=== PATIENT | male | born 1980 | race Caucasian/White ===

== ENCOUNTER 2016-12-14 19:18 | Inpatient (IN) ==
[2016-12-14] MEDS ORDERED: ASPIRIN PO STA (19:34)
[2016-12-14 19:49] LABS: MANUAL DIFF NEEDED? NO
[2016-12-14 19:55] LABS: BASO% 0.5 % (0.0-0.8); EOS# 0.42 X1000 (0.0-0.7); EOS% 2.7 % (0.0-10.0); HEMATOCRIT 45.4 % (42.0-52.0); IMM GRAN# 0.02 X1000 (0.0-0.04); IMM GRAN% 0.1 % (0.0-0.5); LYMPH% 27.8 % (20.5-51.1); MCH 31.1 PG (27-31); MCHC 35.2 g/dL (33-37); MCV 88.3 FL (81-99); MONO# 1.16 X1000 (0.11-0.59); MONO% 7.5 % (1.7-9.3); MPV 10.1 FL (7.4-10.4); NEUT% 61.4 % (42.2-75.2); PLT 260 X1000 (130-400); RBC 5.14 XMIL (4.7-6.1)
[2016-12-14 20:04] LABS: INR 1.01; PROTIME 10.6 Seconds (9.2-11.7); PTT 26.9 Seconds (22.0-36.0)
--- NOTE | 2016-12-14 20:19 | Diag Imaging Result Doc PS360 ---
CHEST-2 VIEWS - 12/14/2016 INDICATION: CP TECHNIQUE: COMPARISON: 04/09/2015 FINDINGS: The lungs are normally expanded and clear. Heart size and mediastinal contours are normal. No pneumothorax or pleural effusion. IMPRESSION: Negative exam. Electronically signed by Shaji Obrien 12/14/2016 8:17 PM
[2016-12-14 20:27] LABS: AGAP 12; ALBUMIN 4.1 g/dL (3.5-5.0); ALKALINE PHOSPHATASE 152 U/L (32-122); BUN 10 mg/dL (8-22); CALCIUM 9.8 mg/dL (8.8-10.2); CHLORIDE 104 mmol/L (98-107); COSMO 285; GOT 110 U/L (10-34); GPT 30 U/L (10-44); POTASSIUM 3.9 mmol/L (3.5-5.1); SODIUM 143 mmol/L (136-145); TCO2 27 mmol/L (25-35); TOTAL PROTEIN 6.8 g/dL (6.3-8.3)
[2016-12-14 20:32] LABS: CK PROFILE 1369 U/L (24-204)
[2016-12-14] MEDS ORDERED: LOVENOX 1 MG/KG SUBQ ONE (20:50)
[2016-12-14] MEDS ORDERED: LOPRESSOR PO ONE (20:50)
[2016-12-14 20:57] LABS: CK INDEX 13.3 (0.0-2.5)
[2016-12-14 21:11] LABS: URINE CULTURE NEEDED? NO; URINE MICRO REVIEW NEEDED? NO; URINE SOURCE CLEAN CATCH
[2016-12-14 21:14] LABS: UR EPITHELIAL CELLS <10 /HPF (<10); URINE BACTERIA NEGATIVE /HPF; URINE RBC <10 /HPF (<10); URINE WBC <10 /HPF (<10)
[2016-12-14 21:15] LABS: BILIRUBIN URINE NEGATIVE (NEGATIVE); BLOOD URINE NEGATIVE (NEGATIVE); COLOR YELLOW; GLUCOSE URINE NEGATIVE (NEGATIVE); LEUKOCYTES URINE NEGATIVE (NEGATIVE); NITRITE URINE NEGATIVE (NEGATIVE); PH URINE 6.5; PROTEIN URINE TRACE mg/dL (NEGATIVE); SP GRAVITY URINE 1.023; TURBIDITY URINE CLEAR (CLEAR); UROBILINOGEN URINE NORMAL (NORMAL)
[2016-12-14] MEDS ORDERED: LOVENOX SUBQ ONE (21:15)
[2016-12-14 21:39] LABS: UR AMPHETAMINES QUAL NONE DETECTED (NONE DETECT); UR BARBITUATES QUAL NONE DETECTED (NONE DETECT); UR BENZODIAZEPIN QUAL NONE DETECTED (NONE DETECT); UR CANNABINOIDS QUAL NONE DETECTED (NONE DETECT); UR COCAINE QUAL NONE DETECTED (NONE DETECT); UR METHADONE QUAL NONE DETECTED (NONE DETECT); UR OPIATES QUAL NONE DETECTED (NONE DETECT); UR OXYCODONE QUAL NONE DETECTED (NONE DETECT); UR PCP QUAL NONE DETECTED (NONE DETECT)
[2016-12-14] MEDS ORDERED: ZOCOR PO SCH (22:36)
[2016-12-14] MEDS ORDERED: TYLENOL PO PRN (22:36)
[2016-12-14] MEDS ORDERED: ZOFRAN IV PRN (22:36)
[2016-12-14] MEDS: NITROGLYCERIN TOP SCH (23:08)
[2016-12-14 23:39] LABS: HEMOGLOBIN A1C 5.1 % (4.8-6.0)
--- NOTE | 2016-12-15 00:18 | HISTORY AND PHYSICAL ---
CHIEF COMPLAINT: Chest pain. HISTORY OF PRESENT ILLNESS: This is a 36-year-old male with a past medical history of hypertension, obesity status post Lap-Band in roughly 2004, he has since lost I believe 100 pounds or so. At any rate, last night at around 2 a.m. he was lying in bed and began having chest pressure with mild pain. He stated that the chest pain was midline in his chest that did not move into his left chest at all. The pain was very mild at 1st and it resolved fairly quickly. He had a 2nd spell that was more intense in pain as well as duration again with a sudden onset roughly 6/10. He also had a heaviness or pressure and stated that it radiated up into his left neck and shoulder. He again waited and did not come to the emergency room until later in the day thinking it was possibly gas. On arrival to the emergency room a chest x-ray, EKG and laboratory data was obtained. The patient was noted as having a elevated CK at 1369, a CK index of 13.3 and a troponin of 1.240. Dr. Bi Zepeda was called. The patient will be admitted to CICU. He is receiving 1 mg/kg of Lovenox in the emergency room as well as 25 mg of metoprolol and then a 325 aspirin. He will be admitted inpatient and will likely stay for at least 48 hours. PAST MEDICAL HISTORY: 1. Hypertension. 2. Depression and anxiety. 3. Basal cell carcinoma of the back status post removal. PREVIOUS SURGICAL HISTORY: 1. Multiple right shoulder surgeries. 2. Lap-Band procedure in 2004. 3. Basal cell carcinoma removal of the back. FAMILY HISTORY: Lives at home with his and 4 children. 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 Denies alcohol or illicit drug use or abuse. FAMILY HISTORY: Significant for coronary artery disease. Both his mother and father had myocardial infarction. The mom had 2 myocardial infarctions before age 53. The father had his 1st 1 at age 40. He was also positive for diabetes mellitus and hypertension. The mother had diabetes and hypertension as well, both grandmothers paternal and maternal had CVAs. ALLERGIES: Bactrim causing itching. HOME MEDICATIONS: Celexa 20 mg daily, Prinzide 20/12.5 mg p.o. daily. REVIEW OF SYSTEMS: Fourteen point review of systems conducted with the patient. Pertinent positives listed above in the HPI. All other systems reviewed and found to be negative. PHYSICAL EXAMINATION: VITAL SIGNS: Temperature 98.4 degrees, pulse 69, respirations 21, blood pressure 139/104, oxygen saturation 97% on room air. GENERAL: Anxious 36-year-old male sitting in ER stretcher. Very pleasant. at bedside. Patient answers all questions appropriately and is in no acute distress at this time. HEENT: Head is atraumatic, normocephalic. Pupils equal, round, reactive to light. Extraocular eye movement intact. Sclerae is anicteric. Conjunctivae is pink. Oral mucosa is moist. NECK: Supple. No JVD. No thyromegaly. Trachea is midline. No cervical lymphadenopathy. No carotid bruit on auscultation. CARDIAC: S1-S2 appreciated. No murmurs, gallops, rubs. Regular rhythm. Sinus rhythm on monitor. LUNGS: Clear to auscultation bilaterally. Mildly prolonged expiratory phase. No wheezing, no rhonchi, no rales. Symmetrical rise and fall respirations. ABDOMEN: Protuberant soft, nondistended, nontender. Bowel sounds present all 4 quadrants. Normoactive. No pulsatile mass. No organomegaly. EXTREMITIES: No clubbing, cyanosis, or edema. 2+ pedal pulses bilaterally. GENITOURINARY: No bladder distention noted. Patient voids. Otherwise deferred. SKIN: Warm, dry and intact. No acute lesions or rash. A 4 cm in diameter circular scarring noted to the left upper shoulder above the scapula where basal cell carcinoma was removed. NEUROLOGICAL: Alert and oriented x3. Cranial nerves 2-12 grossly intact. DIAGNOSTIC DATA: Chest x-ray NAD. LABORATORY DATA: WBC 15.46, hemoglobin 16, hematocrit 45.4, platelet count 260,000. Coagulations within normal limits. D-dimer 0.28. Sodium 143, potassium 3.9, chloride 104, carbon dioxide 27, BUN 10, creatinine 0.9, glucose 111, AST 110, ALT 30, alkaline phosphate 152, CK 1369, CK index 13.3, CK/MB 181.80, troponin 1.240, proBNP 1387. Urine showed trace protein otherwise unremarkable. Toxicology screen pending. ASSESSMENT AND PLAN: 1. Non Q-wave myocardial infarction. Dr. Bi Zepeda has been consulted and was made aware of the patient, 1 mg/kg Lovenox administered in the emergency room, 325 aspirin was given as well as metoprolol 25 mg p.o. q.a.m., will defer cardiac testing such is echocardiogram or stress test to Cardiology. They will possibly prefer cardiac catheterization. Will hold further Lovenox until cardiology evaluates in a.m., continue metoprolol 12.5 mg p.o. b.i.d. and aspirin 325 p.o. daily. Will apply nitroglycerin topically 1 inch q.6 hours. I will check a direct lipid profile but will start simvastatin 40 mg p.o. at bedtime tonight. 2. Hypertension. Patient is relatively normotensive at this time. Will continue MARTÍNEZ inhibitor. As noted above beta jennifer has been added and will also give nitroglycerin as indicated above. 3. Leukocytosis likely reactive. Will recheck laboratory data in a.m. 4. Anxiety and depression. Continue Celexa. 5. Tobacco abuse. Smoking cessation was gone over with the patient, the perils of smoking up to and including were talked about with the patient. He understands his need to quit and has requested a low-dose nicotine patch while in the hospital. This will be provided 14 mg daily. Further recommendations per patient clinical course. Dictated by JAC Gustafson for Law Ochoa MD cc: MD Law Wong MD
[2016-12-15 00:40] LABS: CK INDEX 12.7 (0.0-2.5); CK-MB 167.8 ng/mL (0.0-5.0)
[2016-12-15] MEDS: NITROGLYCERIN TOP SCH ×5 (04:25→21:37)
[2016-12-15 05:08] LABS: MANUAL DIFF NEEDED? NO
[2016-12-15 05:14] LABS: BASO% 0.4 % (0.0-0.8); EOS# 0.29 X1000 (0.0-0.7); EOS% 2.1 % (0.0-10.0); HEMATOCRIT 43.6 % (42.0-52.0); HEMOGLOBIN 14.9 g/dL (14.0-18.0); IMM GRAN# 0.03 X1000 (0.0-0.04); IMM GRAN% 0.2 % (0.0-0.5); LYMPH# 4.73 X1000 (1.2-3.4); LYMPH% 34.9 % (20.5-51.1); MCH 30.5 PG (27-31); MCHC 34.2 g/dL (33-37); MCV 89.3 FL (81-99); MONO# 1.05 X1000 (0.11-0.59); MONO% 7.7 % (1.7-9.3); MPV 10.1 FL (7.4-10.4); NEUT% 54.7 % (42.2-75.2); PLT 247 X1000 (130-400); RBC 4.88 XMIL (4.7-6.1)
[2016-12-15 05:35] LABS: AGAP 9; BUN 10 mg/dL (8-22); CALCIUM 8.8 mg/dL (8.8-10.2); CHLORIDE 102 mmol/L (98-107); COSMO 279; SODIUM 140 mmol/L (136-145); TCO2 29 mmol/L (25-35)
[2016-12-15 06:07] LABS: CK INDEX 10.8 (0.0-2.5); CK-MB 143.7 ng/mL (0.0-5.0)
[2016-12-15] MEDS: LOPRESSOR PO SCH ×2 (09:25→20:29)
[2016-12-15] MEDS: CELEXA PO SCH (09:25)
[2016-12-15] MEDS: ASPIRIN PO SCH (09:25)
[2016-12-15] MEDS: LOVENOX SUBQ SCH ×2 (09:25→21:37)
[2016-12-15] MEDS: NICODERM PATCH TD SCH (09:26)
[2016-12-15] MEDS: PRINZIDE 20/12.5MG PO SCH (09:26)
--- NOTE | 2016-12-15 11:16 | PROGRESS NOTE ---
DATE: 12/15/2016 SUBJECTIVE: Patient reports feeling fine. Denies any chest pain now or overnight. No difficulty in breathing. No nausea, vomiting, or diaphoresis. OBJECTIVE: Vital Signs: Temperature 97.8 degrees, heart rate 65, respiratory rate 18, blood pressure 111/67, O2 saturation 99% on room air. General Examination: This is a 36-year-old, male, lying in bed, in no acute distress. HEENT: Head is normocephalic and atraumatic. Anicteric sclerae and pale conjunctivae. Mucous membranes moist. Neck: Supple. No JVD noted. No carotid bruits. No lymphadenopathy. No thyromegaly. Cardiovascular Examination: S1 and S2 heard. No murmurs, gallops, or rubs. Regular rate and rhythm. Respiratory Examination: Clear bilaterally to auscultation. There is a mild prolonged expiratory phase but there is no wheezing or rhonchi. The patient is not using any accessory muscles or having work of breathing. Abdomen: Soft, nontender to palpation. Bowel sounds present. No organomegaly. Extremities: No clubbing, cyanosis, or edema. Peripheral pulses present in both legs. Neurological Examination: Patient is alert and oriented x3. Moves 4 extremities. Laboratory Data: White cell count 13.57. BMP is normal. Troponin is 2.8 this morning. ASSESSMENT AND PLAN: 1. Non ST-segment elevation myocardial infarction. Overnight, this patient was admitted for non- ST elevated myocardial infarction. Troponin has been getting higher since then and today is 2.8. At this time, we are awaiting cardiology evaluation to see if this patient is a candidate for left heart catheterization or not. Echocardiogram is still pending. We will continue with Lovenox 1 mg/kg every 12 hours and also metoprolol as well. 2. Hypertension. Patient's blood pressure is well controlled. We will continue with same management. 3. Anxiety and depression. We will continue with Celexa. 4. Tobacco abuse. The patient has been strongly advised to stop smoking. cc: Jignesh Ruiz MD
--- NOTE | 2016-12-15 14:23 | CONSULTATION ---
DATE OF CONSULTATION: 12/15/2016 INDICATION: Non ST elevation VT. HISTORY OF PRESENT ILLNESS: Mr. Weems is a 36-year-old noncompliant male with a history of hypertension, not currently taking his medications. He presented for evaluation of chest pain that began at 2 a.m. early Friday morning. This occurred while he was watching TV. This persisted for around 4 hours. He ultimately was able to fall asleep around 8 o' clock in the morning. He ultimately presented yesterday evening secondary to just not feeling right. He has not had any recurrence of the pain since then. The pain was described as a tightness from the midchest radiating to both shoulders. Again, he has not had recurrence of the pain since. He does smoke. PAST MEDICAL HISTORY: 1. Significant for hypertension, depression. 2. Basal cell carcinoma of the back status post removal. SOCIAL HISTORY: He does smoke. He works as a villafuerte. He is . FAMILY HISTORY: Significant for hypertension. REVIEW OF SYSTEMS: A 10 system review of systems is negative except for those things mentioned in HPI. PHYSICAL EXAMINATION: Vital signs: He is afebrile. Heart rate of 61, blood pressure of 115/76. His presenting blood pressure was 145/106. General: No acute distress. HEENT : Oropharynx is moist. Normal dentition. Eye examination shows pink conjunctivae. White sclerae. Neck: Examination shows no obvious thyromegaly or thyroid tenderness. Cardiovascular : He is in a regular rate and rhythm. He has no murmurs. He has no S3. He has no lower extremity edema. Chest: Clear bilaterally. No increased work of breathing. Abdomen: Soft, nontender, nondistended. He has no obvious organomegaly. Skin: Exam is warm and dry throughout without any rashes. Neurological: He is moving all extremities well. Cranial nerves 2-12 are intact without any sensation deficits. Psychiatric: Alert and oriented, pleasant. Normal mood and affect. PERTINENT DATA: His original EKG shows sinus rhythm, 73 beats per minute. That was at 1923. He did have some biphasic T-waves with some Q-waves in V1 and V2. No Q-wave was present in V3. Subsequent EKG showed PVCs, sinus rhythm, rate of 69 beats per minute. He had some worsening in the biphasic changes in V2 and V3. Again, persistence of Q-waves in V1 and V2. Chest x-ray demonstrated no evidence of acute findings. Data shows white count of 13.6, hematocrit 43.6, platelet count 247,000. Sodium 140, potassium 4, BUN 10, creatinine 0.8. His cardiac enzymes originally were 1.24 and have trended up to 2.84. MB is 143. ASSESSMENT: 1. Jfb-OR-vyujxrfds myocardial infarction. 2. Hypertension with noncompliance. 3. Tobacco abuse. PLAN: Patient is currently on Lovenox b.i.d., aspirin and atorvastatin as well as metoprolol and lisinopril. I would continue on these medications. He seems hemodynamically stable. He is not having any pain presently. We will plan for cardiac catheterization in the morning. Risks, benefits and alternatives are explained to the patient and he agrees to proceed. Smoking cessation was advised. cc: Bi Zepeda MD MTDD
[2016-12-15 14:42] LABS: CK INDEX 9.3 (0.0-2.5); CK-MB 95.05 ng/mL (0.0-5.0)
[2016-12-15] MEDS ORDERED: IMODIUM PO PRN (16:15)
[2016-12-15] MEDS ORDERED: MISC. PHARMACY COMMUNICATION SCH (16:45)
[2016-12-15] MEDS ORDERED: LIPITOR PO SCH (21:00)
[2016-12-16] MEDS: NITROGLYCERIN TOP SCH ×2 (04:34→10:18)
[2016-12-16 05:11] LABS: MANUAL DIFF NEEDED? NO
[2016-12-16 05:18] LABS: BASO% 0.3 % (0.0-0.8); EOS# 0.31 X1000 (0.0-0.7); EOS% 2.2 % (0.0-10.0); HEMATOCRIT 44.4 % (42.0-52.0); HEMOGLOBIN 15.1 g/dL (14.0-18.0); IMM GRAN# 0.03 X1000 (0.0-0.04); IMM GRAN% 0.2 % (0.0-0.5); LYMPH# 4.11 X1000 (1.2-3.4); LYMPH% 29.1 % (20.5-51.1); MCH 30.2 PG (27-31); MCV 88.8 FL (81-99); MONO# 1.34 X1000 (0.11-0.59); MONO% 9.5 % (1.7-9.3); MPV 10.4 FL (7.4-10.4); NEUT% 58.7 % (42.2-75.2); PLT 250 X1000 (130-400)
--- NOTE | 2016-12-16 05:21 | EKG Report ---
Test Performed on : 12/15/2016 05:59:53 AM Test Reason : ACS/AMI Blood Pressure : / mmHG Vent. Rate : 069 BPM Atrial Rate : 069 BPM P-R Int : 152 ms QRS Dur : 082 ms QT Int : 448 ms P-R-T Axes : 032 029 104 degrees QTc Int : 480 ms Sinus rhythm. with frequent premature ventricular complexes. Septal infarct (cited on or before 14-DEC-2016) T wave abnormality, consider anterolateral ischemia Abnormal ECG When compared with ECG of 14-DEC-2016 19:23, (Unconfirmed) premature ventricular complexes. are now present Confirmed by Marcelo Canales MD ([id number]) on 12/16/2016 8:50:37 AM
[2016-12-16 05:28] LABS: INR 1.01; PROTIME 10.6 Seconds (9.2-11.7)
[2016-12-16 05:32] LABS: AGAP 15; BUN 10 mg/dL (8-22); CALCIUM 9.6 mg/dL (8.8-10.2); CHLORIDE 102 mmol/L (98-107); COSMO 282; SODIUM 142 mmol/L (136-145); TCO2 25 mmol/L (25-35)
--- NOTE | 2016-12-16 05:54 | EKG Report ---
Test Performed on : 12/14/2016 7:23:47 PM Test Reason : cp Blood Pressure : / mmHG Vent. Rate : 073 BPM Atrial Rate : 073 BPM P-R Int : 150 ms QRS Dur : 080 ms QT Int : 404 ms P-R-T Axes : 021 013 089 degrees QTc Int : 445 ms Normal sinus rhythm. Septal infarct , age undetermined Abnormal ECG When compared with ECG of 17-JUL-2016 10:29, Septal infarct is now present Non-specific change in ST segment in Anterior leads T wave inversion now evident in Lateral leads Confirmed by Marcelo Canales MD ([id number]) on 12/16/2016 8:50:26 AM
[2016-12-16] MEDS ORDERED: NS 1,000 ML IV SCH ×3 (07:23→07:38)
--- NOTE | 2016-12-16 07:53 | EKG Report ---
Test Performed on : 12/16/2016 06:14:59 AM Test Reason : nstemi Blood Pressure : / mmHG Vent. Rate : 064 BPM Atrial Rate : 064 BPM P-R Int : 148 ms QRS Dur : 078 ms QT Int : 450 ms P-R-T Axes : 030 016 119 degrees QTc Int : 464 ms Normal sinus rhythm. Septal infarct (cited on or before 14-DEC-2016) Marked T wave abnormality, consider anterolateral ischemia Abnormal ECG When compared with ECG of 15-DEC-2016 05:59, (Unconfirmed) premature ventricular complexes. are no longer present Serial changes of Septal infarct present Confirmed by Parker HILL, Marcelo Rajput ([id number]) on 12/16/2016 8:50:50 AM
[2016-12-16] MEDS: PRINZIDE 20/12.5MG PO SCH (08:16)
[2016-12-16] MEDS: NICODERM PATCH TD SCH (08:16)
[2016-12-16] MEDS: LOPRESSOR PO SCH (08:16)
[2016-12-16] MEDS: ASPIRIN PO SCH (08:16)
[2016-12-16] MEDS: CELEXA PO SCH (08:16)
--- NOTE | 2016-12-16 08:43 | PROGRESS NOTE ---
DATE: 12/16/2016 SUBJECTIVE: Mr. Weems has not had any chest pain overnight. He is NPO for his presumed cardiac catheterization this morning. PHYSICAL EXAMINATION: Vital Signs: Afebrile, heart rate 75, blood pressure 118/68. General: No acute distress. He is pleasant. Cardiovascular: Regular rate and rhythm. No murmurs. He has no S3, no S4. No lower extremity edema. Chest: Examination is clear bilaterally. He has no increased work of breathing. Abdomen: Soft, nontender, nondistended. He has no obvious organomegaly. Skin Examination: Warm and dry throughout. PERTINENT DATA: He has an EKG present from this morning showing sinus rhythm, rate of 64 beats per minute. He has evidence for Q-waves across the precordium that seem fairly consistent. He has progression of the T-wave abnormalities in the anteroseptal segments. His white count is 14, his hematocrit is 44.4, platelet count 250,000. His sodium is 142, potassium is 4, BUN 10, creatinine 0.8. ASSESSMENT: Non-ST elevation myocardial infarction. PLAN: He is to proceed to cardiac catheterization laboratory today. His vitals seem to be well controlled. He has been treated with aspirin, atorvastatin, enoxaparin, MARTÍNEZ inhibitors, and beta- blockers with good control of his symptoms. cc: Bi Zepeda MD
[2016-12-16 08:49] LABS: CK-MB 30.13 ng/mL (0.0-5.0)
[2016-12-16] MEDS ORDERED: HEPARIN 1000 UNITS/NS 1,000 UNIT/500 ML IV.SOLN ONE ×2 (09:38→09:39)
[2016-12-16] MEDS ORDERED: MORPHINE ONE (09:38)
[2016-12-16] MEDS ORDERED: VERSED ONE (09:38)
--- NOTE | 2016-12-16 10:10 | PROGRESS NOTE ---
DATE: 12/16/2016 SUBJECTIVE: Patient reports feeling fine. Denies any chest pain, shortness of breath, nausea, vomiting, diaphoreses. OBJECTIVE: Vital Signs: Temperature 98.2 degrees, heart rate 74, respiratory rate 18, blood pressure 118/68, O2 saturation 100% on room air. General Examination: This is a 36-year-old, male, lying in bed, in no acute distress. HEENT: Head is normocephalic and atraumatic. Anicteric sclerae and pale conjunctivae. Mucous membranes moist. Neck: Supple. No JVD noted. No carotid bruits. No lymphadenopathy. No thyromegaly. Cardiovascular Examination: S1 and S2 heard. No murmurs, gallops, or rubs. Regular rate and rhythm. Respiratory Examination: Clear bilaterally to auscultation. Mild prolonged expiatory phase but there is no wheezing or rhonchi. The patient is not using any accessory muscles or having work of breathing. Abdomen: Soft, nontender to palpation. Bowel sounds present. No organomegaly. Extremities: No clubbing, cyanosis, or edema. Peripheral pulses present in both legs. Neurological Examination: Patient is alert and oriented x3. Moves 4 extremities. Laboratory Data: White cell count 14.13, hemoglobin 15.1, hematocrit 44.4, platelets 250,000. BMP is completely unremarkable. ASSESSMENT AND PLAN: 1. Non-ST segment elevation myocardial infarction. The patient is stable. Vital signs are stable. Patient is not complaining of any chest pain any more. Patient has been evaluated by cardiology. He is going to undergo left heart catheterization. We will see what that exam shows. Currently, patient is on beta-blockers. Patient is on Lovenox, aspirin, atorvastatin high doses, and angiotensin-converting enzyme inhibitors. We will continue with the same management. 2. Hypertension. The blood pressure is well controlled, in the range of 110s and 120s. We will continue with the same management. 3. Anxiety and depression. We will continue with Celexa. 4. Tobacco use. Patient has been advised strongly about stopping smoking and the advantage of doing so in heart health. cc: Jignesh Ruiz MD
[2016-12-16] MEDS: LOVENOX SUBQ SCH (10:18)
[2016-12-16] MEDS ORDERED: MAALOX PLUS LIQUID PO PRN (11:59)
[2016-12-16 12:24] VITALS: BP 116/76
[2016-12-16] MEDS ORDERED: HEPARIN 25,000 UNITS/D5W 25,000 UNIT/250 ML IV.SOLN IV SCH (13:30)
--- NOTE | 2016-12-16 15:47 | ECHO REPORT ---
ORDER DATE: 12/16/2016 ECHOCARDIOGRAPHIC MEASUREMENTS: 1. Interventricular septum 0.8. 2. Left ventricular posterior wall 1. 3. Diastolic diameter 5.8. 4. Left atrium 3.9. 5. Aorta 3.6. SUMMARY OF 2-DIMENSIONAL IMAGIN. Dilated left ventricle with severely reduced systolic function. Estimated ejection fraction of 20-25%. There is global hypokinesis. However, there is anteroseptal apical akinesis. 2. Aortic valve leaflets are trileaflet. Mitral valve was normal. Tricuspid valve was normal. Pulmonic valve not well visualized. 3. Technically suboptimal study. Definity was used to assess left ventricular systolic function. 4. There is no aortic stenosis or regurgitation. There is trivial mitral regurgitation. Trivial tricuspid regurgitation. 5. There is no pericardial effusion or obvious intracardiac mass or thrombus. cc: MD Geoffrey Hairston MD
--- NOTE | 2016-12-16 18:25 | DISCHARGE SUMMARY ---
ADMISSION DATE: 12/14/2016 DISCHARGE DATE: 12/16/2016 DISCHARGE DIAGNOSES: 1. Ajl-WJ-lwaszbb elevation myocardial infarction. 2. Acute congestive heart failure secondary diagnosis #1. 3. Hypertension. 4. Anxiety and depression. 5. Tobacco abuse. CONSULTATIONS: Dr. Bi Zepeda from cardiology. PROCEDURES: Echocardiogram showed dilated left ventricle with severely reduced systolic function with ejection fraction of 20 to 25% with global hypokinesis and also no pericardial effusion, no obvious intracardiac mass or thrombosis. HOSPITAL COURSE: This is a 36-year-old male with a past medical history of hypertension, depression, and anxiety, who presented to the emergency department complaining of chest pain that woke him up in the middle of the night around 2 a.m., that lasted some minutes and resolved on its own. Then he had another spell that was more intense so he decided to come to the ER here. Here the troponins were elevated, although there were no EKG changes. Dr. Bi Zepeda from cardiology was consulted. The next day the chest pain was controlled. The initial plan was to perform a left heart catheterization. Today this patient had this procedure done and also an echocardiogram confirmed left ventricular dysfunction, although the patient was not was not symptomatic. So, the decision was made to transfer this patient to [facility] for possible angioplasty. The patient was discharged in stable condition by ambulance. DISCHARGE PHYSICAL EXAMINATION: Vital signs: Temperature 98.8 degrees, heart rate 64, respiratory rate 19, blood pressure 116/66, O2 saturation 98% on 2 L nasal cannula. General Examination: This is a 36-year-old male, lying in bed, in no acute distress. HEENT: Head is normocephalic, atraumatic. Anicteric sclerae and pale conjunctivae. Mucous membranes moist. Neck: Supple. No JVD noted. No carotid bruits. No lymphadenopathy. No thyromegaly. Cardiovascular: S1, S2 heard. No murmurs, gallops, or rubs. Regular rate and rhythm. Respiratory: Clear bilaterally to auscultation. No work of breathing or using accessory muscles. Abdomen: Soft. Nontender to palpation. Bowel sounds present. No organomegaly. Extremities: No clubbing, cyanosis, or edema. Peripheral pulses present in both legs. Neurological: Patient is alert and oriented x3. Able to move 4 extremities. Cranial nerves 2 through 12 grossly normal. DISCHARGE DISPOSITION: To [facility] to be evaluated by cardiology service. cc: Jignesh Ruiz MD
--- NOTE | 2017-01-06 21:26 | CARDIAC CATH REPORT ---
PROCEDURE NAME: - PROCEDURE PERFORMED: Left heart catheterization and selective coronary angiography. Left ventriculography not performed. INDICATIONS: Recent anterior non ST elevation myocardial infarction. Entry site: Right femoral artery. CATHETERS USED: 5-Bulgarian JL4, 3DRC, and angled pigtail. TECHNIQUE: After intravenous sedation with Versed and morphine, local anesthesia with lidocaine was applied over right femoral artery. Arterial access was established with placement of a 5- Bulgarian sheath in the right femoral artery using modified Seldinger technique. Selective coronary angiography was performed followed by left heart catheterization. Left ventriculography was not performed to minimize contrast load in anticipation of possible percutaneous coronary intervention to follow. Upon completion of procedure, arterial sheath was removed and hemostasis facilitated with manual pressure. The patient tolerated the procedure without apparent complications. FINDINGS: Hemodynamics: Aortic pressure 93/67, left ventricular pressure 96 over EDP of 15. Comments on hemodynamics: There is no significant gradient across aortic valve demonstrated on pullback from left ventricle. ANGIOGRAPHY: 1. Left ventriculogram not performed. 2. Left main coronary: Left main coronary artery is free of significant coronary stenosis. 3. Left anterior descending coronary: Left anterior descending coronary is occluded proximally. 4. Left circumflex coronary. The left circumflex coronary demonstrates sequential moderate (50%- 60%) focal stenosis proximally. Obtuse marginal demonstrates a moderate (70%) proximal stenosis. 5. Right coronary: The dominant right coronary demonstrates a severe (greater than 95%) focal stenosis in mid portion of posterior descending artery. Well-established collaterals can be seen emanating from the posterior descending artery and filling the distal left anterior descending coronary. SUMMARY: 1. Borderline elevated left ventricular end-diastolic pressure. 2. Right-dominant coronary anatomy as described with occluded proximal left anterior descending coronary receiving collaterals from severely stenosed posterior descending artery. Moderate atherosclerotic disease evident in left circumflex coronary. RECOMMENDATIONS: Consideration to be given to possible percutaneous intervention on left anterior descending coronary. Interventional cardiology consult to be obtained. cc: Geoffrey Newell MD
--- NOTE | 2017-03-05 06:08 | PROVIDER DOCUMENTATION ---
This chart was entered by Willard Caraballo Scribe, acting as scribe for Willem Bah MD. HPI-Chest Pain - General Chief Complaint: Chest Pain Stated Complaint: CP/SOB Time Seen by Provider: 12/14/16 20:22 Source: patient Allergies/Adverse Reactions: Patient Allergies Allergy/AdvReac Type Severity Reaction Status Date / Time sulfamethoxazole AdvReac DIARRHEA Verified 01/20/17 00:03 [From Bactrim] trimethoprim [From Bactrim] AdvReac DIARRHEA Verified 01/20/17 00:03 Home Medications: Home Medication List Medication Instructions Recorded Confirmed Last Taken Type Lisinopril/Hydrochlorothiazide 20 mg PO DAILY 07/17/16 01/20/17 01/19/17 History [Lisinopril-Hctz 20-12.5 mg Tab] Atorvastatin Calcium [Lipitor] 40 mg PO DAILY 12/28/16 01/20/17 01/19/17 History Carvedilol [Coreg] 6.25 mg PO BID 12/28/16 01/20/17 01/19/17 History Spironolactone [Aldactone] 12.5 mg PO DAILY 12/28/16 01/20/17 01/19/17 History Ticagrelor [Brilinta] 90 mg PO BID 12/28/16 01/20/17 01/19/17 History Citalopram [Celexa] 20 mg PO DAILY #90 tablet 01/20/17 Unknown Rx Ticagrelor [Brilinta] 90 mg PO BID #6 tablet 01/20/17 Unknown Rx - History of Present Illness-CP Nature of Presenting Problem: Pt is a 36 yowm who presents to ER with CC of central chest pressure that radiates to left lateral neck and bilateral chest that lasted from [id number] this am. Pt reports hx of HTN, smokes 1 ppd of cigarettes, and states that both of his parents have suffered massive MIs (non-fatal). Pt reports that when his chest pressure started, he had very mild nausea, but denies vomiting/ diaphoresis. No further complaints at this time. Location: reports: central Chest Pain Radiation: reports: neck (left lateral), other (bilateral chest) Quality of Pain: reports: pressure Severity in ED: mild, moderate Onset/Duration: this morning ([id number]) Timing: resolved prior to arrival Context/Activities at Onset: reports: rest Modifying Factors: improves with: other (sitting up improves pain). worse with : lying down Associated Symptoms: reports: nausea, shortness of breath. denies: abdominal pain, back pain, diaphoresis, dizziness, fatigue, fever/chills, vomiting, weakness Similar Symptoms Previously?: No Recently Seen Here or By Another Healthcare Provider: No Review of Systems - Adult - REVIEW OF SYSTEMS - ADULT Constitutional: denies: chills, fever, fatique, night sweats, weight gain, weight loss Eyes: reports: no symptoms reported Ears, Nose, Mouth & Throat: reports: no symptoms reported Cardiovascular: reports: chest pain. denies: edema, heart murmur, irregular heart rate, orthopnea, palpitations, poor circulation, PND, syncope Respiratory: reports: shortness of breath. denies: chronic cough, cough, dyspnea on exertion, excessive sputum production, hemoptysis, pleurisy, wheezing Gastrointestinal: reports: nausea. denies: abdominal pain, hematemesis, constipation, diarrhea, difficulty swallowing, frequent heartburn, poor appetite , rectal bleeding, vomiting Genitourinary: reports: no symptoms reported Musculoskeletal: reports: no symptoms reported Integumentary: reports: no symptoms reported Neurological: reports: no symptoms reported Psychiatric: reports: no symptoms reported Endocrine: reports: no symptoms reported Hematologic/Lymphatic: reports: no symptoms reported Allergic/Immunologic: reports: no symptoms reported All Other Systems: Reviewed and Negative Past History - Adult - PAST MEDICAL HISTORY-ADULT Review of Records: reports: Nursing Assessment Review, Medications Reviewed Cardiovascular: reports: HTN Gastrointestinal: reports: other (lapband placement) Musculoskeletal: reports: orthopedic injury (multiple R shoulder surgeries) Other Conditions: reports: other cancer (Skin), other - PRIOR SURGERIES/PROCEDURES Surgical/Procedure History: reports: orthopedic (extremity) (shoulder R, ), other (lapband) - PRIOR HOSPITALIZATIONS Prior Hospitalizations: reports: none - IMMUNIZATION STATUS Childhood Immunizations: See Nurse Assessment Flu Vaccine: See Nurse Assessment - FAMILY HISTORY Family History: reviewed, not pertinent Physical Exam-General - PHYSICAL EXAM-ADULT Initial Vital Signs Reviewed: Yes - CONSTITUTIONAL General Appearance: appears well, alert, mild distress - EYES Eyes: PERRL/EOMI, pink conjunctivae - NECK Neck: non-tender, full range of motion, supple. negative: C-spine tenderness, limited range of motion, lymphadenopathy - RESPIRATORY Respiratory: chest non-tender, lungs clear, normal breath sounds, no pleuratic chest pain, no respiratory distress, no accessory muscle use. negative: respiratory distress, decreased breath sounds, accessory muscle use, wheezing - CARDIOVASCULAR Cardiovascular: normal peripheral pulses, regular rate, rhythm, other (HTN (139/ 104)). negative: bradycardia, tachycardia, irregularly irregular - GASTROINTESTINAL (ABDOMEN) Abdominal Exam: normal bowel sounds, non tender, soft, no organomegaly, no pulsatile mass, other (palpable lap band). negative: guarding, rebound, tenderness - MUSCULOSKELETAL Back Exam: no CVA tenderness, no vertebral tenderness. negative: CVA tenderness , vertebral tenderness - PSYCHIATRIC Psych/Mental Status: normal mood/affect, normal thought content, normal thought process, oriented x 3 Progress - PLAN OF CARE/RESULTS Progress/Plan/Lab Results: Orders Category Date Time Status Admit - [facility] Routine AdmDCTranf 12/14/16 22:36 Ordered Activity - Up with Assistance ORDERED Care 12/14/16 22:36 Active Cardiac Monitoring DIRECTED Care 12/14/16 19:34 Completed Daily Weights QAM Care 12/14/16 22:36 Active Intake and Output-Strict ORDERED Care 12/14/16 22:36 Active Misc. NRSG Communication Order DIRECTED Care 12/14/16 22:36 Active Notify MD if DIRECTED Care 12/14/16 22:36 Active Nursing- MD Consult Request ROUTINE Care 12/14/16 22:36 Completed Old records/chart to unit .From other facility Care 12/14/16 22:36 Active [facility]ine Loc NOW Care 12/14/16 19:34 Completed Vital Signs Order Q 4-HR ASSESS Care 12/14/16 22:36 Active Z-Document. for Tele Applied ORDERED Care 12/14/16 22:36 Completed Physician/Provider Consults Routine Cons 12/14/16 22:36 Ordered Heart Healthy Diet Diet 12/14/16 21:24 Completed NPO Diet 12/15/16 00:01 Completed CHEST-2 VIEWS [RAD] Stat Exams 12/14/16 19:34 Completed A1C HGB W EST AVG GLUCOSE [CHEM] Routine Lab 12/14/16 22:55 Completed BMP [BASIC METABOLIC PANEL] [CHEM] Routine Lab 12/15/16 04:42 Completed CBC WITH DIFF [HEME] Routine Lab 12/15/16 04:42 Completed CBC WITH ELECTRONIC DIFF [HEME] Stat Lab 12/14/16 19:30 Completed CK PROFILE [SP CHEM] Q8H Lab 12/14/16 22:55 Completed CK PROFILE [SP CHEM] Q8H Lab 12/15/16 04:42 Completed CK PROFILE [SP CHEM] Q8H Lab 12/15/16 13:35 Completed CK PROFILE [SP CHEM] Stat Lab 12/14/16 19:30 Completed COMPREHENSIVE METABOLIC PANEL [CHEM] Stat Lab 12/14/16 19:30 Completed D-DIMER [CHEM] Stat Lab 12/14/16 19:30 Completed LIPID PROFILE W/DIR LDL [LIPIDS] Stat Lab 12/14/16 22:55 Completed MAGNESIUM [CHEM] Stat Lab 12/14/16 19:30 Completed PRO B-NATRIURETIC PEPTIDE Stat Lab 12/14/16 19:30 Completed PROTIME WITH INR [COAG] Stat Lab 12/14/16 19:30 Completed PTT [COAG] Stat Lab 12/14/16 19:30 Completed TROPONIN T Q8H Lab 12/14/16 22:55 Completed TROPONIN T Q8H Lab 12/15/16 04:42 Completed TROPONIN T Q8H Lab 12/15/16 13:35 Completed TROPONIN T Stat Lab 12/14/16 19:30 Completed UA NIMS W/REFLEX CULT [URINALYSIS] Stat Lab 12/14/16 21:05 Completed URINE DRUG SCREEN Stat Lab 12/14/16 21:05 Completed Acetaminophen [Tylenol] Med 12/14/16 22:36 Discontinued 650 mg PO Q6H PRN PRN Aspirin Med 12/15/16 09:00 Discontinued 325 mg PO DAILY Aspirin Med 12/14/16 19:34 Discontinued 325 mg PO STAT STA Citalopram [Celexa] Med 12/15/16 09:00 Discontinued 20 mg PO DAILY Enoxaparin 1 mg/kg [Lovenox 1 mg/kg] Med 12/14/16 20:50 Discontinued 1 each SUBQ NOW ONE Enoxaparin [Lovenox] Med 12/14/16 21:15 Discontinued 110 mg SUBQ NOW ONE LISINOpril/HCTZ [Prinzide 20/12.5MG] Med 12/15/16 09:00 Discontinued 1 each PO DAILY Metoprolol [Lopressor] Med 12/15/16 09:00 Discontinued 12.5 mg PO BID Metoprolol [Lopressor] Med 12/14/16 20:50 Discontinued 25 mg PO NOW ONE Nicotine Patch [Nicoderm Patch] Med 12/15/16 09:00 Discontinued 14 mg TD DAILY Nitroglycerin Med 12/14/16 22:36 Discontinued 1 inch TOP Q6H Ondansetron [Zofran] Med 12/14/16 22:36 Discontinued 4 mg IV Q4H PRN PRN SIMVAstatin [Zocor] Med 12/14/16 22:36 Discontinued 40 mg PO QHS Oxygen Device Routine Oth 12/14/16 22:36 Completed Pulse Oximetry Routine Oth 12/14/16 22:36 Completed Telemetry [OM.EQ] Routine Oth 12/14/16 22:36 Active EKG [EKG] Routine Ther 12/15/16 06:00 Completed EKG [EKG] Stat Ther 12/14/16 19:20 Completed Transfer/Admit Order [TRANSFER] Routine Transfer 12/14/16 21:22 Completed Result Diagrams: 12/16/16 04:40 12/16/16 04:40 - XRAY 1 XRAY: Bilateral XRAY Study: Chest Impression: See EMR Report XRAY Interpretation: Negative exam - Dr. Obrien (Radiologist) - CONSULTS/PCP/HOSPITALIST Notification #1 *Consult/PCP/Hospitalist*: Dr. Bi Zepeda (Can Tender) Time Discussed: 20:49 Reason/Comments: Aspirin, beta jennifer, admit #2 Consult: Dr. Ochoa (Hospitalist) Time Discussed: 20:51 Consult Disposition: Admit Departure - Departure Date of Disposition Decision: 12/14/16 Time of Disposition Decision: 20:30 DIAGNOSIS: Chest pain due to myocardial ischemia Qualifiers: Ischemic chest pain type: unstable angina pectoris Qualified Code(s): I20.0 - Unstable angina Disposition: ADMITTED INPATIENT 09 Certified Medical Emergency: Emergent Condition: Good - Critical Care Note This patient required my direct & personal management of CC.: No Attestation - Physician/ ANA ROSA Attestation Patient care was provided by Advanced Practice Provider:: No The physician spent face to face time with patient:: Yes Advanced Practice Provider documentation review:: Supervising physician onsite and consulted in the evaluation and care of this patient. The physician did have a face to face encounter with the patient. This chart was documented by the indicated scribe, (Willard Caraballo, Katja) and accurately reflects the services I performed and decisions made by me, Willem Bah MD, as attested by the provider's signature.
--- NOTE | 2017-03-05 06:13 | ED EKG INTERP ---
This chart was entered by Willard Caraballo Scribe, acting as scribe for Willem Bah MD. EKG Interpretation - EKG Time of EKG reading by physician:: 19:23 EKG Read and Signed by:: Wlilem Bah EKG Interpretation (*Must complete 3 of following elements*): Abnormal (Septal infarct, age undetermined) Rate: 73 Rhythm: NSR Attestation - Physician/ ANA ROSA Attestation Patient care was provided by Advanced Practice Provider:: No The physician spent face to face time with patient:: No Advanced Practice Provider documentation review:: Supervising physician onsite and consulted in the evaluation and care of this patient. The physician did not have a face to face encounter with the patient. This chart was documented by the indicated scribe, (Willard Caraballo Scribe) and accurately reflects the services I performed and decisions made by me, Willem Bah MD, as attested by the provider's signature.
== END 2016-12-16 16:05 | disposition short-term general hospital (02) ==
LOC: ED 19:18 → 3S 22:26 → SUATTDRO 22:26 → 3S 22:34 → ICU 12-16 11:56
PROVIDERS: ATTEND Internal Medicine

== ENCOUNTER 2018-08-07 13:18 | Inpatient (IN) ==
--- NOTE | 2018-08-07 13:38 | PROVIDER DOCUMENTATION ---
HPI-Chest Pain - General Chief Complaint: Chest Pain Stated Complaint: CHEST PAIN Time Seen by Provider: 08/07/18 13:27 Source: patient Allergies/Adverse Reactions: Patient Allergies Allergy/AdvReac Type Severity Reaction Status Date / Time sulfamethoxazole AdvReac DIARRHEA Verified 01/20/17 00:03 [From Bactrim] trimethoprim [From Bactrim] AdvReac DIARRHEA Verified 01/20/17 00:03 Home Medications: Home Medication List Medication Instructions Recorded Confirmed Last Taken Type Amlodipine [Norvasc] 2.5 mg PO DAILY 09/30/17 09/30/17 07/03/17 09:00 History 2.5 MG Aspirin [Aspirin EC] 81 mg PO DAILY 09/30/17 09/30/17 07/03/17 09:00 History 81 MG Atorvastatin Calcium [Lipitor] 40 mg PO HS 09/30/17 09/30/17 07/03/17 09:00 History 40 MG Carvedilol [Coreg] 6.25 mg PO BID 09/30/17 09/30/17 07/03/17 09:00 History 6.25 MG Citalopram [Celexa] 20 mg PO DAILY 09/30/17 09/30/17 07/03/17 09:00 History 20 MG Clopidogrel Bisulfate [Plavix] 75 mg PO DAILY 09/30/17 09/30/17 07/03/17 09:00 History 75 MG Lisinopril 20 mg PO DAILY 09/30/17 09/30/17 07/03/17 09:00 History 20 MG Ropinirole [Requip] 1 mg PO DAILY 09/30/17 09/30/17 Unknown History Furosemide [Lasix] 20 mg PO DAILY #30 tab 10/01/17 Unknown Rx - History of Present Illness-CP Nature of Presenting Problem: Patient seen earlier today for chest pain and 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 Patient stated at that time that he would return to follow through with obs admission, as has now presented. No change in sx, and no new sx at this time. Location: reports: substernal Chest Pain Radiation: reports: shoulders Quality of Pain: reports: pressure, tightness Severity in ED: moderate Onset/Duration: 3 days ago Timing: still present, improving Context/Activities at Onset: reports: light activity Modifying Factors: improves with: rest (improves) Associated Symptoms: reports: nausea Nitro Today/Relief: no nitro taken today Aspirin Treatment Today: no aspirin today Prior Chest Pain/Cardiac Workup: reports: cardiac cath Similar Symptoms Previously?: Yes Recently Seen Here or By Another Healthcare Provider: Yes (seen earlier today for same sx) Review of Systems - Adult - REVIEW OF SYSTEMS - ADULT Constitutional: reports: no symptoms reported Eyes: reports: no symptoms reported Ears, Nose, Mouth & Throat: reports: no symptoms reported Cardiovascular: reports: see HPI Respiratory: reports: no symptoms reported Gastrointestinal: reports: no symptoms reported Genitourinary: reports: no symptoms reported Musculoskeletal: reports: no symptoms reported Integumentary: reports: no symptoms reported Neurological: reports: no symptoms reported Psychiatric: reports: no symptoms reported Endocrine: reports: no symptoms reported Hematologic/Lymphatic: reports: no symptoms reported Allergic/Immunologic: reports: no symptoms reported All Other Systems: Reviewed and Negative Past History - Adult - PAST MEDICAL HISTORY-ADULT Review of Records: reports: Old Records Reviewed, Nursing Assessment Review, Medications Reviewed, Social history reviewed & non-contributory. Major Childhood Illnesses: reports: denies history Cardiovascular: reports: CHF, HTN, hyperlipidemia, IL, other Respiratory: reports: denies history Gastrointestinal: reports: other (lapband placement) Obstetrical/Gynecological: reports: denies history Genitourinary: reports: denies history Musculoskeletal: reports: orthopedic injury (multiple R shoulder surgeries) Neurological: reports: denies history Endocrine/Immune: reports: denies history Other Conditions: reports: other cancer (Skin), other - PRIOR SURGERIES/PROCEDURES Surgical/Procedure History: reports: orthopedic (extremity) (shoulder R, ), other (lapband) - PRIOR HOSPITALIZATIONS Prior Hospitalizations: reports: none - IMMUNIZATION STATUS Childhood Immunizations: See Nurse Assessment Flu Vaccine: See Nurse Assessment - FAMILY HISTORY Family History: reviewed, not pertinent Physical Exam-General - PHYSICAL EXAM-ADULT Initial Vital Signs Reviewed: Yes - CONSTITUTIONAL General Appearance: appears well, alert, no apparent distress - EYES Eyes: PERRL/EOMI - HEAD, EARS, NOSE, MOUTH & THROAT HENMT: normocephalic/atraumatic, moist mucous membranes, normal ENT inspection - NECK Neck: non-tender - RESPIRATORY Respiratory: chest non-tender, lungs clear, normal breath sounds, no pleuratic chest pain - CARDIOVASCULAR Cardiovascular: normal peripheral pulses - GASTROINTESTINAL (ABDOMEN) Abdominal Exam: normal bowel sounds, non tender, soft - LYMPHATIC Lymphatic: no adenopathy - MUSCULOSKELETAL Back Exam: normal inspection Extremity: normal gait - HEART Score HEART Score: History: Moderately Suspicious HEART Score: ECG: Non-Specific Repolarization Disturbance/LBBB/PM HEART Score: Age: < or = 45 Years HEART Score: Risk Factors for Atherosclerotic Disease: > or = 3 Risk Factors or History of Atherosclerotic Disease HEART Score: Troponin: < or = Normal Limit Total HEART Score:: 4 Progress - PLAN OF CARE/RESULTS Progress/Plan/Lab Results: Vital Signs - 8 hr 08/07/18 13:24 Temperature 97.6 F Pulse Rate 99 H Respiratory Rate 19 Blood Pressure 160/113 O2 Sat by Pulse Oximetry 97 - CONSULTS/PCP/HOSPITALIST Notification #1 *Consult/PCP/Hospitalist*: Dr. Warren Time Discussed: 13:45 Consult Disposition: Admit Departure - Departure Date of Disposition Decision: 08/07/18 Time of Disposition Decision: 13:45 DIAGNOSIS: Chest pain Disposition: ADMITTED INPATIENT 09 Certified Medical Emergency: Emergent Condition: Stable Referrals and Follow-Ups: None,PCP [Primary Care Provider] - - Critical Care Note This patient required my direct & personal management of CC.: No Attestation - Physician/ ANA ROSA Attestation Patient care was provided by Advanced Practice Provider:: No The physician spent face to face time with patient:: Yes Advanced Practice Provider documentation review:: Supervising physician onsite and consulted in the evaluation and care of this patient. The physician did have a face to face encounter with the patient.
[2018-08-07] MEDS ORDERED: NITROGLYCERIN SL PRN (14:31)
[2018-08-07] MEDS ORDERED: MORPHINE IV PRN (14:31)
[2018-08-07] MEDS ORDERED: ZOFRAN IV PRN (14:31)
[2018-08-07] MEDS ORDERED: TYLENOL PO PRN (14:31)
[2018-08-07] MEDS ORDERED: APRESOLINE IV ONE (14:59)
[2018-08-07] MEDS ORDERED: APRESOLINE IV PRN (14:59)
--- NOTE | 2018-08-07 15:34 | HISTORY AND PHYSICAL ---
PRIMARY CARE PROVIDER: No one. CHIEF COMPLAINT: Shortness of breath with chest pain in the mornings along with nocturnal sweats. HISTORY OF PRESENT ILLNESS: Mr. Myles Weems is a 38-year-old male with a medical history of hypertension, non-STEMI November of 2016 where he received 3 cardiac stents, systolic congestive heart failure or ischemic cardiomyopathy, depression, anxiety, who presents with complaints of at least 1 month left upper lung pain worst with deep inspiration but starting Friday morning around 04:15 it woke him up from sleep. It was severe and it lasted 30-40 minutes. He went to the ER that day. The ER did not get to see him, he left prior to that. He had another bout of the same symptoms yesterday morning and again this morning and so represented to the ER earlier. He had inpatient orders placed by Hospitalist services but left prior to being seen, and then he represented a couple of hours later, and we have been able to see him now. He denies any fever or chills. He does state from time to time he has rust-colored phlegm on occasion. The pain is worse when he is lying down and he is not taking anything to make the pain better. He has noticed that she has had some shortness of breath as well but mostly with activity. PAST MEDICAL HISTORY: 1. Hypertension. 2. Anxiety, depression. 3. Non-STEMI November 2016 with 3 cardiac stents. 4. Basal cell carcinoma on the back that was removed. 5. Systolic congestive heart failure with ejection fraction of 20% to 25%. 6. Obstructive sleep apnea prior to having Lap-Band surgery with 50 pound weight loss, states he has never had to use CPAP. 7. Noncompliance. He has not taken any medications at all for at least a year. He states this is from a financial standpoint. PAST SURGICAL HISTORY: 1. Multiple right shoulder surgeries. 2. Lap-Band in 2001 and as far as he knows there is still fluid in it but he does not follow up with the physician who placed it. 3. Basal cell carcinoma removed. 4. Left hand first finger tendon repair. SOCIAL HISTORY: He smoked at least for 27 years since November of 2016. He attempted to quit but he has essentially been smoking about a half pack per day for the last 2 years, but prior to that he was a 2 pack per day smoker. Denies alcohol or illicit drug use. He lives at home with his and children. They share 1 car so travel is an issue for them. He is currently unemployed and he has already filed for Disability. FAMILY HISTORY: Mother had her first heart attack at 53 and at 56, which was this past March, from stroke and from myocardial infarction. She also had to have a coronary artery bypass graft. Father, his age was 48 at first myocardial infarction and he currently has to have a defibrillator pacemaker. There is also stroke and diabetes positive in the family. ALLERGIES: Bactrim which causes itches and blisters. HOME MEDICATIONS: He states he is not taking any of his medications for at least 1 year, but we have listed for September, which he states he has not been taking is: 1. Aspirin. 2. Celexa. 3. Coreg. 4. Lipitor. 5. Lisinopril. 6. Norvasc. 7. Plavix. 8. Requip. 9. Lasix. REVIEW OF SYSTEMS: A 14-point review of systems are complete and all were negative other than those mentioned in HPI. PHYSICAL EXAMINATION: VITAL SIGNS: Temperature 97.6, heart rate 106, respiratory rate 29, blood pressure 172/124, O2 saturation 96% on room air. GENERAL: Mr. Myles Weems is a 38-year-old male. He is in no acute distress. He is able to answer questions appropriately. HEENT: Atraumatic, normocephalic. Pupils equal, round, and reactive to light. Extraocular movements intact. Mucous membranes are moist. NECK: Trachea midline. CARDIOVASCULAR: S1, S2, tachycardic rate and rhythm. No rubs, gallops, or murmurs. No lower extremity edema, +2 dorsalis and radial pulses. Negative JVD or carotid bruits. PULMONARY: Clear to auscultate, bilateral breath sounds. No accessory muscle use or work of breathing noted. GASTROINTESTINAL: Soft, nontender, nondistended, positive bowel sounds x4. EXTREMITIES: Moves all extremities equally, full range of motion. NEUROLOGIC: A and O x3, follows commands. Sensory is intact. SKIN: Warm, dry, intact. LABORATORY DATA: No labs on this AH number but on his AH number from earlier today, he has a white blood cell count of 13,000, hemoglobin and hematocrit 16 and 48, platelet count 294. He has an INR of 0.89, PTT of 27.4. Sodium 139, potassium 3.5, BUN 8, creatinine 1.0, glucose 110, calcium 8.4, magnesium not drawn, bilirubin 0.42, AST 15, ALT 16. CK 95 and that was at 0834 this morning. He had 2 sets of troponins already this morning at 0834 of 0.058 and at 1045 of 0.069. ProBNP 1388. Albumin is 4.0. He has not had a urinalysis or toxicology today but it has been ordered. IMAGING: No current imaging this admission, but on his AH number from earlier today, he had a chest x-ray that was negative exam. He had EKG, which showed normal sinus rhythm, rate was 90, no ST changes. ASSESSMENT AND PLAN: 1. Atypical chest pain. It almost sounds like it could be pleural. It is worse with inspiration. It hurts more when he lays back. He has had a rust phlegm on occasion but no fever or chills. He has had some night sweats but when he did have his chest pain over the last 3 mornings it has radiated down the left arm. There is no dizziness or lightheadedness. No nausea, vomiting. No diaphoresis or clammy feeling, and it would last 30-40 minutes before it would subside on its own. First 2 sets of cardiac enzymes on the AH number from earlier today were negative. EKG did not show any ST elevation. I am going to order a D-dimer and see if it is elevated, if so will do a CTA of the pulmonary system, and we are going to consult Cardiology. 2. Coronary artery disease with history of myocardial infarction or non-ST elevation myocardial infarction with 3 cardiac stents. He has not been taking any medications for the last year, so we will need to get him started back on his aspirin, statin, and his beta- jennifer. 3. Systolic congestive heart failure probably ischemic cardiomyopathy with an ejection fraction of 20% to 25% back in 2017. Again like I said, he has not been on his Coreg, no Lasix or anything for at least a year. So, we will get an updated echocardiogram but I believe he has an issue of being unable to afford medications according to him. 4. Morbid obesity, body mass index is 37.7. 5. Tobacco abuse. Cessation discussed. 6. Medical noncompliance. He states is due to the inability to afford his medications or see a physician as well. 7. Deep venous thrombosis prophylaxis, Lovenox. Dictated by JAC Esteves for Jignesh Ruiz MD Addendum: Patient seen and examined by myself. Agree with JAC note. It reflects my assessment and plan. Patient is being admitted to hospital for chest pain workup. D dimer pending and if positive will do CTA chest. Will continue monitoring him closely. cc: JAC Esteves MD [facility]
--- NOTE | 2018-08-07 16:23 | CARDIOLOGY CONSULTATION ---
DATE: 08/07/2018 CHIEF COMPLAINT: Chest pain. HISTORY OF PRESENT ILLNESS: Mr. Weems is a 38-year-old white male with a history of hypertension, ischemic cardiomyopathy. He has been noncompliant with medications for the last year secondary to not being able to afford them however he is able to afford to continue smoking. He presents with chest discomfort that is described as a pressure sensation in the midchest with radiation to the shoulder. These are nonexertional pains lasting for up to 30 minutes. Most of them seem to be waking him from sleep. He did not have any nausea or diaphoresis. He is not currently having chest pain. PAST MEDICAL HISTORY: 1. Significant for hypertension. 2. Non ST-elevation WI with cardiac catheterization performed in 2016 demonstrating a normal left main, left anterior descending was occluded proximally seen filling with collaterals from the right. Circumflex had sequential moderate disease of 50% to 60% proximally within an obtuse marginal with moderate 70% lesion. Right coronary was dominant with 95% focal stenosis in the midportion of the posterior descending. Since that time he had a SH[employer]ER stent placed to the left anterior descending as well as a followup PCI to the right coronary. These were done in separate procedures in Echo. 3. Basal cell carcinoma. 4. History of systolic heart failure. Most recent evaluation by stress in January 2017 demonstrated an ejection fraction of 46%. 5. Obstructive sleep apnea not using CPAP. 6. History of noncompliance. SOCIAL HISTORY: He continues to smoke. No alcohol or illicit drugs. FAMILY HISTORY: Notable for heart disease in his mother at a relatively young age in the mid 50s. Father was 48 at the time of his 1st WI. REVIEW OF SYSTEMS: A 10 system review of systems is negative except for those things mentioned in HPI. PHYSICAL EXAMINATION: Vital Signs: He is afebrile. His heart rate is in the 90s to low 100s. His systolic blood pressure most recently was 144/106. All his readings from today have been in the 150s to 170 systolic with the exception of the most recent. General: He is in no acute distress. HEENT: Oropharynx moist. Poor dentition. Eye examination shows pink conjunctivae, white sclerae. Neck: Shows no obvious thyromegaly or thyroid tenderness. Cardiovascular: He sounds to be in a regular rate and rhythm. He has no obvious murmurs. There is no S3. He has no lower extremity edema. His JVP is less than 8 cm of water. He has no carotid bruits. Chest: Clear bilaterally. He has no increased work of breathing. Abdomen: Soft, nontender, nondistended. He has no obvious organomegaly. Skin: Warm and dry throughout without any rashes. Neurological: Moving all extremities well. He has no lateralizing deficits. PERTINENT DATA: His chest x-ray shows no evidence of acute abnormalities. His EKG reviewed by me shows sinus rhythm. He does have suggestion of anterior septal Q-waves which would be consistent with the infarct identified on previous nuclear scans. He has a left ventricular hypertrophy. White count is 13.7, hematocrit is 48, platelet count 294,000, his INR 0.89. Sodium 139, potassium 3.5, BUN 8, creatinine is 1. Cardiac enzymes have been negative x2. His proBNP is 1388. ASSESSMENT: Mr. Weems is a 38-year-old gentleman who has been noncompliant with medical therapy. PLAN: We will reinstitute his medications including aspirin, Coreg, amlodipine, atorvastatin and lisinopril. We will try to titrate his antianginals. We will recheck an echocardiogram to evaluate his ejection fraction. We will consider stress testing in the future. I will check a lipid profile in the morning. cc: Bi Zepeda MD
--- NOTE | 2018-08-07 16:39 | ECHO REPORT ---
ORDER DATE: 08/07/2018 ECHOCARDIOGRAPHIC MEASUREMENTS: 1. Interventricular septum 1.3. 2. Left ventricular posterior wall 1.0. 3. Diastolic diameter 5.5. 4. Left atrium 3. 5. Aorta 3.8. SUMMARY: 1. Technically suboptimal study. 2. Very poor acoustic window. 3. Pulmonic valve not well visualized. 4. Aortic valve leaflets are trileaflet. 5. Mitral valve was normal. 6. Tricuspid valve was normal. 7. There is diastolic dysfunction. 8. There is mild mitral regurgitation. 9. Mild tricuspid regurgitation. 10. Peak velocity across the tricuspid valve was 2 m/sec. 11. Peak velocity across the aortic valve less than 2 m/sec. 12. By Doppler studies there is no aortic stenosis or regurgitation. 13. Definity was used to assess left ventricular systolic function. 14. Left ventricle cavity size was normal. 15. There is left ventricular hypertrophy with reduced systolic function. 16. Estimated ejection fraction of 30%. There is anteroseptal apical hypokinesis. 17. There is no pericardial effusion. cc: MD Farzaneh Hairston CRNP
[2018-08-07 16:40] LABS: BASO# 0.08 X1000 (0.0-0.2); BASO% 0.6 % (0.0-0.8); EOS# 0.47 X1000 (0.0-0.7); EOS% 3.6 % (0.0-10.0); HEMATOCRIT 45.6 % (42.0-52.0); HEMOGLOBIN 15.6 g/dL (14.0-18.0); IMM GRAN# 0.03 X1000 (0.0-0.04); IMM GRAN% 0.2 % (0.0-0.5); LYMPH# 4.06 X1000 (1.2-3.4); LYMPH% 31.5 % (20.5-51.1); MCH 30.4 PG (27-31); MCHC 34.2 g/dL (33-37); MCV 88.9 FL (81-99); MONO# 0.69 X1000 (0.11-0.59); MONO% 5.4 % (1.7-9.3); MPV 9.9 FL (7.4-10.4); NEUT# 7.55 X1000 (1.4-6.5); NEUT% 58.7 % (42.2-75.2); PLT 277 X1000 (130-400); RBC 5.13 XMIL (4.7-6.1); RDW 12.9 % (11.5-14.5); WBC 12.88 X1000 (4.8-10.8)
[2018-08-07 16:48] LABS: INR 0.93; PROTIME 13.2 Seconds (11.0-16.0)
[2018-08-07 16:49] LABS: PTT 27.2 Seconds (22.3-41.8)
[2018-08-07 16:51] LABS: D-DIMER 0.32 ug/mLFEU (0.0-0.52)
[2018-08-07 17:16] LABS: FREE T4 0.96 ng/dL (0.93-1.70); TSH 1.36 uIUmL (0.27-4.20)
[2018-08-07 17:37] LABS: AGAP 13; ALB/GLOB RATIO 1.2; ALKALINE PHOSPHATASE 149 U/L (32-122); BUN 10 mg/dL (8-22); C REACTIVE PROT QUANT 10.89 mg/L (0.00-5.00); CALCIUM 8.3 mg/dL (8.8-10.2); CHLORIDE 103 mmol/L (98-107); CK TOTAL 88 U/L (24-204); COSMO 281; ESTIMATED GFR > 60; GLUCOSE 106 mg/dL (70-104); GOT 17 U/L (10-34); GPT 17 U/L (10-44); POTASSIUM 3.8 mmol/L (3.5-5.1); SODIUM 141 mmol/L (136-145); TCO2 25 mmol/L (25-35); TOTAL BILIRUBIN 0.49 mg/dL (0.20-1.00); TOTAL PROTEIN 7.3 g/dL (6.3-8.3)
[2018-08-07 17:42] LABS: URINE SOURCE CLEAN CATCH
[2018-08-07 17:45] LABS: BILIRUBIN URINE NEGATIVE (NEGATIVE); BLOOD URINE NEGATIVE (NEGATIVE); COLOR YELLOW; GLUCOSE URINE NEGATIVE (NEGATIVE); KETONE URINE TRACE mg/dL (NEGATIVE); LEUKOCYTES URINE NEGATIVE (NEGATIVE); NITRITE URINE NEGATIVE (NEGATIVE); PH URINE 6.5; PROTEIN URINE 30 mg/dL (NEGATIVE); SP GRAVITY URINE 1.025; TURBIDITY URINE CLEAR (CLEAR); UROBILINOGEN URINE 2 mg/dL (NORMAL)
[2018-08-07 17:52] LABS: UR EPITHELIAL CELLS <10 /HPF (<10); URINE BACTERIA NEGATIVE /HPF; URINE RBC <10 /HPF (<10); URINE WBC <10 /HPF (<10)
[2018-08-07 18:02] LABS: URINE CRYSTALS NONE SEEN
[2018-08-07] MEDS ORDERED: COREG PO SCH (21:00)
[2018-08-07] MEDS ORDERED: LIPITOR PO SCH (21:00)
[2018-08-07] MEDS ORDERED: REQUIP PO SCH (21:01)
[2018-08-07] MEDS: COREG PO SCH (21:53)
[2018-08-08 06:50] LABS: BASO# 0.06 X1000 (0.0-0.2); BASO% 0.5 % (0.0-0.8); EOS# 0.51 X1000 (0.0-0.7); EOS% 4.3 % (0.0-10.0); HEMATOCRIT 43.8 % (42.0-52.0); HEMOGLOBIN 14.8 g/dL (14.0-18.0); INR 0.9; LYMPH# 4.04 X1000 (1.2-3.4); LYMPH% 34.3 % (20.5-51.1); MCH 30.3 PG (27-31); MCHC 33.8 g/dL (33-37); MCV 89.8 FL (81-99); MONO# 0.82 X1000 (0.11-0.59); MPV 9.6 FL (7.4-10.4); NEUT# 6.36 X1000 (1.4-6.5); NEUT% 53.9 % (42.2-75.2); PLT 254 X1000 (130-400); PROTIME 12.8 Seconds (11.0-16.0); RBC 4.88 XMIL (4.7-6.1); RDW 13.2 % (11.5-14.5); WBC 11.79 X1000 (4.8-10.8)
[2018-08-08 06:51] LABS: PTT 27.9 Seconds (22.3-41.8)
[2018-08-08] MEDS ORDERED: PRILOSEC PO SCH (07:00)
[2018-08-08 07:12] LABS: AGAP 9; ALB/GLOB RATIO 1.3; ALBUMIN 3.9 g/dL (3.5-5.0); ALKALINE PHOSPHATASE 143 U/L (32-122); BUN 10 mg/dL (8-22); CHLORIDE 105 mmol/L (98-107); COSMO 280; CREATININE 0.8 mg/dL (0.7-1.2); ESTIMATED GFR > 60; GLUCOSE 97 mg/dL (70-104); GOT 15 U/L (10-34); GPT 15 U/L (10-44); POTASSIUM 3.9 mmol/L (3.5-5.1); SODIUM 141 mmol/L (136-145); TCO2 27 mmol/L (25-35); TOTAL BILIRUBIN 0.56 mg/dL (0.20-1.00)
[2018-08-08] MEDS ORDERED: NORVASC PO SCH (09:00)
[2018-08-08] MEDS ORDERED: REQUIP PO SCH (09:00)
[2018-08-08] MEDS ORDERED: ASPIRIN EC PO SCH (09:00)
[2018-08-08] MEDS ORDERED: PRINIVIL PO SCH (09:00)
[2018-08-08] MEDS ORDERED: CELEXA PO SCH (09:00)
[2018-08-08] MEDS ORDERED: LOVENOX SUBQ SCH (09:00)
[2018-08-08] MEDS: COREG PO SCH (10:18)
[2018-08-08 13:01] VITALS: BP 141/109
--- NOTE | 2018-08-08 14:32 | CARDIOLOGY PROGRESS NOTE ---
DATE: 08/08/2018 SUBJECTIVE: Mr. Weems reports he did better overnight. He is not having any chest pain. OBJECTIVE: Vital Signs: On physical, he is afebrile, heart rate 78. His blood pressures over the course of the evening have been predominantly in the 120s to 130s after midnight; he did have 141/109 this morning. General: He is in no acute distress. Cardiovascular: He sounds to be in a regular rate and rhythm. No murmurs. No S3. He has no lower extremity edema. Respiratory: His chest exam sounds clear bilaterally. He has no increased work of breathing. Abdomen: Soft, nontender. PERTINENT DATA: White count 11.7, his hematocrit is 43, his platelet count is 254. His sodium is 141, potassium 3.9, BUN 10, creatinine 0.8. His cardiac enzymes have remained negative. His proBNP is down to 669. His LDL was 110. ASSESSMENT: Mr. Weems is a 38-year-old gentleman with a history of severe coronary artery disease, who has been off of his medicines for close to a year. PLAN: I recommended adherence to his medications. We resumed his medications. He has not had any chest pain since that time, and he has had no chest pain with better control of his blood pressure. From my standpoint, he can be discharged home. His echocardiogram shows an ejection fraction of around 30 to 35 percent, and does not appear to be significantly different from his previous echocardiogram on my review by study in November of 2016. cc: Bi Zepeda MD
--- NOTE | 2018-08-08 15:49 | DISCHARGE SUMMARY ---
ADMISSION DATE: 08/07/2018 DISCHARGE DATE: DISCHARGE DIAGNOSES: 1. Chest pain. 2. Noncompliant with medical therapy. 3. History of coronary artery disease with history of a myocardial infarction/non-ST elevation myocardial. 4. Systolic congestive heart failure with an ejection fraction of 25% to 30%. 5. Morbid obesity. 6. Tobacco abuse. HOSPITAL COURSE: A 38-year-old male with a past medical history of hypertension, non-ST elevation myocardial infarction in November of 2016, where he received 3 cardiac stents, systolic congestive heart failure/likely secondary to ischemic cardiomyopathy, depression and anxiety who presented to the Emergency Department with at least one month of left upper thoracic pain which is worse with deep inspiration but it starting Friday morning at around 4:15 a.m. waking him up from sleep, lasting around 30 to 40 minutes. He went to the Emergency Department that day but the Emergency Room Doctor did not get to see him. He left prior to the medical exam. He had another bout of the same symptoms the day before admission so he presented to the Emergency Department and he had inpatient orders placed by the hospitalist team but he left prior to being seen, but he presented again a couple of hours later. He denied any fever or chills. He stated that the pain is worse when he is lying down, and he is not taking any medication to make it better. Per the patient, he has had some shortness of breath as well but mostly with activity. He also has a past medical history of basal cell carcinoma on the back that was removed and obstructive sleep apnea. The Cardiology Department evaluated this patient and adjusted his medications. He has not had any more episodes of chest pain or shortness of breath. Vital signs were stable as well as laboratory with slightly elevated white blood cells but no symptoms of fever or chills or any respiratory issues. He had an x-ray done on 08/07/2018 that was negative. Today when I examined the patient he was sitting on the bed and he was complaining of shoulder pain which was painful to palpation. I believe he had multiple surgeries but mostly on the right shoulder. Dr. Zepeda from the Cardiology Department reevaluated this patient today again and it feels like this patient can be discharged safely home. Upon discharge the patient was in stable medical condition, tolerating n.p.o., ambulating, and with no chest pain at all. PHYSICAL EXAMINATION: VITAL SIGNS: Temperature 97.9, pulse 78, respiratory rate 20, blood pressure 141/109, and oxygen saturation 100% on room air. HEENT: Head is normocephalic, nontraumatic. PERRLA. NECK: Supple. No JVD. No masses. Central trachea. RESPIRATORY: Chest is clear to auscultation. No wheezing or rales. Some pain at the level of the left shoulder upon palpation and mobilization. GASTROINTESTINAL: The abdomen is soft, nontender, and nondistended. No hepatosplenomegaly. CARDIOVASCULAR: RRR. No murmurs. EXTREMITIES: No edema. No clubbing. No cyanosis. NEUROLOGICAL: The patient is alert and oriented times 3. No focal deficits. LABORATORY DATA: WBC is 11.7, hemoglobin 14.8, hematocrit 43.8, and platelet count 254. Sodium is 141, potassium 3.9, chloride 105, bicarbonate 27, BUN 10, creatinine 0.8, glucose 97, and calcium 9, AST 15, ALT 15, and ALK PHOS 1.43. Troponin is negative 3. DISCHARGE MEDICATIONS: Ropinirole 1 mg p.o. nightly at bedtime, Lasix 20 mg p.o. daily, Plavix 75 mg p.o. daily, Celexa 20 mg p.o. daily, Coreg 6.25 mg p.o. b.i.d., aspirin 81 mg p.o. daily, omeprazole 20 mg p.o. daily, lisinopril 10 mg p.o. daily, amlodipine 5 mg p.o. daily, and Lipitor 80 mg p.o. nightly at bedtime. FOLLOW UP: Follow up by Dr. Bi Zepeda, the patient will need to call for an appointment. Medications have been sent to the pharmacy. cc: Lul Villarreal MD
--- NOTE | 2018-08-10 07:15 | EKG Report ---
Test Performed on : 08/07/2018 1:22:09 PM Test Reason : chest pain Blood Pressure : / mmHG Vent. Rate : 092 BPM Atrial Rate : 092 BPM P-R Int : 140 ms QRS Dur : 086 ms QT Int : 340 ms P-R-T Axes : 027 -20 127 degrees QTc Int : 420 ms Normal sinus rhythm. Voltage criteria for left ventricular hypertrophy Cannot rule out Septal infarct (cited on or before 14-DEC-2016) T wave abnormality, consider lateral ischemia Abnormal ECG When compared with ECG of 07-AUG-2018 08:08, (Unconfirmed) Questionable change in initial forces of Anterior leads Unconfirmed Result
== END 2018-08-08 15:20 | disposition home or self-care (01) | DRG 313 ==
LOC: ED 13:18 → 3N 14:53 → SUATTDRO 14:53
PROVIDERS: ATTEND Internal Medicine
CPT/HCPCS: 80053; 80061; 81001; 82550; 83036; 83605; 83721; 83735; 83880; 84439; 84443; 84484; 85025; 85379; 85610; 85730; 86140; 87040; 93005; 93306; 94760; 94761; 99285; A9270; C8929; J0360; J1650; Q9957